=== PATIENT | male | born 1940 | race African-American/Black ===

== ENCOUNTER 2021-12-23 23:56 | Inpatient (IN) | payer MEDICARE, OTHER ==
[~2021-12-23] VITALS: Ht 193 cm; Wt 121.1 kg
--- NOTE | 2021-12-24 00:05 | NUR ---
BIBS FOR C/O ON AND OFF L SIDED NON-RADIATING PRESSURE CP SINCE AM +SOB, NAUSEA AND H/A. PATIENT ALERT AND ORIENTED X3. AMBULATORY BUT BROUGHT IN BY WHEELCHAIR. IN BED 10 ON MONITOR AND POX. MD SEEN AT TRIAGE
[2021-12-24] MEDS ORDERED: NITROGLYCERIN 0.4 MG/TAB BOTTLE ONE ×2 (00:06→10:01)
[2021-12-24] MEDS ORDERED: ASPIRIN 325 MG TABLET ONE ×2 (00:07→00:14)
--- NOTE | 2021-12-24 00:10 | NUR ---
BLOOD COLLECTED AND SENT TO LAB
--- NOTE | 2021-12-24 00:15 | NUR ---
XRAY AT BEDSIDE
[2021-12-24] MEDS ORDERED: NITROGLYCERIN 0.4 MG/TAB BOTTLE SL ONE (00:30)
[2021-12-24] MEDS ORDERED: ASPIRIN 81 MG TAB.CHEW PO ONE (00:30)
[2021-12-24 00:31] LABS: BASOPHILS % (AUTO) 0.7 % (0.0-2.0); HEMATOCRIT 44 % (39-51); LYMPHOCYTES # (AUTO) 2.7 K/uL (0.8-4.8); LYMPHOCYTES % (AUTO) 40.9 % (20.0-44.0); MEAN CORPUSCULAR HGB CONC 34 g/dl (31.0-36.0); MEAN CORPUSCULAR VOLUME 93 fL (80-96); MONOCYTES # (AUTO) 0.5 K/uL (0.1-1.30); MONOCYTES % (AUTO) 7.7 % (2.0-12.0); NEUTROPHILS # (AUTO) 3.3 K/uL (1.8-8.9); NEUTROPHILS % (AUTO) 49.7 % (43.0-81.0); PLATELET COUNT (AUTO) 176 K/uL (150-450); RED BLOOD CELL COUNT(AUTO) 4.78 MIL/uL (4.5-6.0); WHITE BLOOD COUNT (AUTO) 6.7 K/uL (4.3-11.0)
[2021-12-24 01:15] LABS: CALCIUM, SERUM 8.7 mg/dL (8.5-10.1); CARBON DIOXIDE 28 mmol/L (21-32); CHLORIDE 105 mmol/L (98-107); CREATININE 1.2 mg/dL (0.6-1.3); GLUCOSE 133 mg/dL (74-106); POTASSIUM 3.7 mmol/L (3.5-5.1); SODIUM SERUM 142 mmol/L (136-145); UREA NITROGEN, BLOOD 15 mg/dL (7-18)
[2021-12-24] MEDS ORDERED: NITROGLYCERIN PACKET 1 GM PACKET TOP ONE (02:00)
[2021-12-24] MEDS ORDERED: NITROGLYCERIN PACKET 1 GM PACKET ONE (02:04)
--- NOTE | 2021-12-24 02:09 | NUR ---
COVID ANTIGEN SWAB COLLECTED AND SENT TO LAB
--- NOTE | 2021-12-24 02:09 | NUR ---
Petar castillo in [facility] - 12/24/21 at 0209 by JAILENE CHIMNEY REPAIRER AT PT'S BEDSIDE
[2021-12-24] MEDS ORDERED: SERT100T PO (02:28)
[2021-12-24] MEDS ORDERED: MIRT-90 PO (02:28)
[2021-12-24] MEDS ORDERED: MELA5TAB PO (02:28)
[2021-12-24] MEDS ORDERED: MIRTAZAPINE 15 MG TABLET PO ONE (02:30)
[2021-12-24] MEDS ORDERED: MIRTAZAPINE 15 MG TABLET ONE (02:30)
--- NOTE | 2021-12-24 03:00 | NUR ---
PT IS RESTING COMFORTABLY IN BED, DENIES ANY PAIN AT THIS TIME. WILL CONTINUE TO MONITOR.
--- NOTE | 2021-12-24 03:10 | NUR ---
MRSA SWAB COLLECTED AND SENT TO LAB. PATIENT'S BELONGINGS LIST DONE.
--- NOTE | 2021-12-24 06:19 | NUR ---
PT TRANSFERRED TO 326-2 VIA ACLS PROTOCOL. VSS. ALL BELONGINGS WITH PT.
[2021-12-24 06:30] VITALS: BP_SYST 140; BP_SYST 148; BP_DIAS 81
--- NOTE | 2021-12-24 06:30 | NUR ---
RN NOTE RECEIVED PT FROM E.[facility]. [facility]IA [employer] TO RM.[id number] BY RN/STAFF. PT AWAKE, A/OX3, ABLE TO MAKE NEEDS KNOWN. HE DENIES ANY PAIN/CHEST PAIN AT THIS TIME. DENIES N/V. DENIES SOB. ON ROOM AIR AND JEANNINE WELL. RESPIRATIONS EVEN/UNLABORED. IV SITE R-AC INTACT/PATENT/FLUSHES WELL. PT IN NO ACUTE DISTRESS. V/S 140/81, 62, 18, 98.2, 97%. SAFETY MEASURES IN PLACE, BED IN LOWEST LOCKED POSITION, S/R UPX2, CALL LIGHT WITHIN REACH. ALL NEEDS ATTENDED TO. WILL CONT TO MONITOR.
[2021-12-24] MEDS ORDERED: ONDANSETRON HCL/PF 4 MG/2 ML VIAL IVP PRN ×2 (07:00)
[2021-12-24] MEDS ORDERED: Z GUARD REMEDY 4 OZ OINT TP PRN ×2 (07:00)
[2021-12-24] MEDS ORDERED: ENOXAPARIN SODIUM 40 MG/0.4 ML DISP.SYRIN SQ SCH (07:00)
[2021-12-24] MEDS ORDERED: ACETAMINOPHEN 325 MG TABLET PO PRN ×2 (07:00)
[2021-12-24] MEDS ORDERED: PANTOPRAZOLE 40 MG TABLET.DR PO SCH ×2 (07:30)
--- NOTE | 2021-12-24 07:30 | NUR ---
RN OPENING NOTE RECEIVED PT ON BED AWAKE, A/OX3, ABLE TO MAKE NEEDS KNOWN. HE DENIES ANY PAIN/CHEST PAIN AT THIS TIME. DENIES N/V. DENIES SOB. ON ROOM AIR AND TOLERATING WELL. RESPIRATIONS EVEN/UNLABORED. WITH IV ACCESS AT RIGHT AC G18 SALINE LOCKED, PATENT AND INTACT. SAFETY MEASURES IN PLACE, BED IN LOWEST LOCKED POSITION, S/R UPX2, CALL LIGHT WITHIN REACH. WILL CONTINUE TO MONITOR.
[2021-12-24 08:00] VITALS: BP 145/84
[2021-12-24 09:00] LABS: BASOPHILS % (AUTO) 0.3 % (0.0-2.0); EOSINOPHILS % (AUTO) 0.8 % (0.0-6.0); HEMATOCRIT 41 % (39-51); HEMOGLOBIN 13.9 g/dL (13.5-17.5); LYMPHOCYTES # (AUTO) 2.5 K/uL (0.8-4.8); LYMPHOCYTES % (AUTO) 38.2 % (20.0-44.0); MEAN CORPUSCULAR HGB CONC 34 g/dl (31.0-36.0); MEAN CORPUSCULAR VOLUME 93 fL (80-96); MONOCYTES # (AUTO) 0.6 K/uL (0.1-1.30); MONOCYTES % (AUTO) 9.6 % (2.0-12.0); NEUTROPHILS # (AUTO) 3.3 K/uL (1.8-8.9); NEUTROPHILS % (AUTO) 51.1 % (43.0-81.0); PLATELET COUNT (AUTO) 170 K/uL (150-450); RED BLOOD CELL COUNT(AUTO) 4.39 MIL/uL (4.5-6.0); WHITE BLOOD COUNT (AUTO) 6.5 K/uL (4.3-11.0)
[2021-12-24] MEDS ORDERED: ATORVASTATIN 10 MG TABLET PO SCH (09:00)
[2021-12-24] MEDS: hydrALAZINE HCL 50 MG TABLET PO SCH ×3 (09:00→16:23)
[2021-12-24] MEDS ORDERED: ASPIRIN EC 81 MG TABLET.DR PO SCH ×2 (09:00)
[2021-12-24] MEDS ORDERED: SERTRALINE HCL 50 MG TABLET PO SCH (09:00)
[2021-12-24] MEDS: ISOSORBIDE DINITRATE (20MG) 20 MG TABLET PO SCH ×3 (09:00→17:00)
[2021-12-24] MEDS ORDERED: ATOR10TA PO (09:05)
[2021-12-24] MEDS ORDERED: VALS1TAB8 PO (09:05)
[2021-12-24] MEDS ORDERED: NETA2.5D3 EACHEYE (09:05)
[2021-12-24] MEDS ORDERED: TIMO5DRO31 EACHEYE (09:05)
[2021-12-24] MEDS ORDERED: IOHEXOL-350 100 ML VIAL IV ONE (10:01)
[2021-12-24] MEDS ORDERED: CT SWABBABLE VALVE TRANS SET 1 EA INFUS.SET MC ONE (10:02)
[2021-12-24] MEDS ORDERED: METOPROLOL TARTRATE INJ 5 MG/5 ML AMPUL ONE (10:02)
[2021-12-24] MEDS ORDERED: IV NS 0.9% 250 ML IV ONE (10:03)
[2021-12-24 10:13] LABS: ALBUMIN 2.7 g/dL (3.4-5.0); BILIRUBIN,TOTAL 0.6 mg/dL (0.2-1.0); CREATININE 1.2 mg/dL (0.6-1.3); MAGNESIUM 2.1 mg/dL (1.8-2.4); PHOSPHORUS 3.6 mg/dL (2.5-4.9); POTASSIUM 3.6 mmol/L (3.5-5.1); TOTAL PROTEIN, SERUM 6.3 g/dL (6.4-8.2)
[2021-12-24 10:28] LABS: CALCIUM, SERUM 8.7 mg/dL (8.5-10.1)
[2021-12-24 12:00] VITALS: BP 109/62
[2021-12-24] MEDS ORDERED: NITROGLYCERIN 30 GM TUBE TP SCH ×2 (12:00)
[2021-12-24 16:00] VITALS: BP 113/68
[2021-12-24 16:23] VITALS: BP 113/68
[2021-12-24] MEDS ORDERED: LORAZEPAM 1 MG TABLET PO PRN (16:40)
--- NOTE | 2021-12-24 17:30 | NUR ---
SUPERVISOR COLOR PASTE MIXING NOTE PATIENT ORDERED FOR DISCHARGE PER DR. PULLIAM'S ORDER. FOR DISCHARGE TO HOME. DISCHARGE INSTRUCTION AND EDUCATION PROVIDED TO PATIENT AND EXPLAINED MEDICATIONS AND PRESCRIPTIONS. PATIENT VERBALIZED UNDERSTANDING. DISCHARGE FORM AND BELONGINGS LIST FORM SIGNED BY PATIENT. ALL BELONGINGS ACCOUNTED FOR. NAME WRIST BAND AND IV LINE REMOVED. PATIENT WAS ACCOMPANIED TO THE LOBBY VIA WHEELCHAIR IN STABLE CONDITION AND WAS PICKED UP BY SON AND LEFT VIA PRIVATE CAR. MD AND CHARGE NURSE ARE AWARE OF THE DISCHARGE.
[2021-12-24] MEDS ORDERED: ATOR40TA PO (18:06)
[2021-12-24] MEDS ORDERED: MIRTAZAPINE 15 MG TABLET PO SCH (22:00)
[2021-12-25] MEDS ORDERED: ENOXAPARIN SODIUM 40 MG/0.4 ML DISP.SYRIN SQ SCH (07:00)
== END 2021-12-24 17:30 | disposition home or self-care (01) | DRG 311 ==
LOC: ER 12-24 → TELE 12-24 04:57
PROVIDERS: ADMIT Internal Medicine; ATTEND Internal Medicine
DX: I20.0 Unstable angina (principal); E78.5 Hyperlipidemia, unspecified; I11.9 Hypertensive heart disease without heart failure; Z20.822 Contact with and (suspected) exposure to COVID-19
CPT/HCPCS: 36415; 71045-TC; 75574; 80048-TC; 80053-TC; 80061-TC; 83735-TC; 84100-TC; 84484-TC; 85025-TC; 87081-TC; 93307-TC; C9803; G0378; J3490; J7050; Q9967